=== PATIENT | female | born 1940 | race Asian ===

== ENCOUNTER → 2016-08-07 | Outpatient (CLI) | payer BC ==
[~2016-08-07] MED LIST: CITA10TA8 PO; PRLSR20 PO
[2016-08-07 14:16] LABS: ESTIMATED AVERAGE GLUCOSE 134 mg/dl; HA1C FLAG Normal (Normal)
== END | disposition home or self-care (01) ==
LOC: C.LABBC 10:36
PROVIDERS: ATTEND Internal Medicine Geriatric Medicine
DX: R73.9 Hyperglycemia, unspecified (principal); K90.0 Celiac disease

== ENCOUNTER → 2016-08-09 | Outpatient (CLI) | payer BC ==
--- NOTE | 2016-08-09 16:02 | MAMMOGRAPHY REPORT ---
BILATERAL DIGITAL SCREENING MAMMOGRAM TOMOSYNTHESIS WITH CAD: 08/09/2016 TECHNIQUE: Breast tomosynthesis in addition to standard 2D mammography was performed. Current study was also evaluated with a Computer Aided Detection (CAD) system. COMPARISON: Comparison is made to exams dated: 08/09/2015 mammogram, 07/01/2013 mammogram, 07/26/2014 m ammogram, 06/29/2012 mammogram, 06/13/2011 mammogram, and 06/12/2010 mammogram - [facility]. BREAST COMPOSITION: There are scattered areas of fibroglandular density in both breasts. FINDINGS: No suspicious masses, calcifications, or areas of architectural distortion are noted in e ither breast. There has been no significant interval change compared to prior exams. IMPRESSION: ACR BI-RADS CATEGORY 1: NEGATIVE There is no mammographic evidence of malignancy. A 1 year screening mammogram is recommended. The p atient will receive written notification of the results. Approximately 10% of breast cancers are not detected with mammography. A negative mammographic repor t should not delay biopsy if a clinically suggestive mass is present. Maria Isabel Cerrato M.D. /:08/09/2016 13:56:37 Floor Covering Printer: Lou CARTER(Kymberly)(M), [facility] letter sent: Normal 1/2 BI-RADS Code: ACR BI-RADS Category 1: Negative
== END | disposition home or self-care (01) ==
LOC: C.MAMM 12:37
PROVIDERS: ATTEND Obstetrics & Gynecology
DX: Z12.31 Encounter for screening mammogram for malignant neoplasm of breast (principal)

== ENCOUNTER → 2016-08-22 | Outpatient (CLI) | payer BC ==
--- NOTE | 2016-08-28 12:27 | CODING QUERY MEDICAL NECESSITY ---
SUPPORTING DIAGNOSIS NEEDED A supporting diagnosis is required for the test/procedure performed on this patient in order for us to be reimbursed by the patient's insurance. Please provide a supporting diagnosis for the following test/procedure listed below next to the test name along with your signature. *If there is no additional diagnosis for this patient that would support the following test/procedure please document that below next to the test/procedure. Test(s)/Procedure(s) that require a supporting diagnosis: DOS 08/22 * Bone Density Study DIAGNOSIS: Provider Signature: Date: Thank you Edna Kennedy Health Information Management Once completed, please kindly fax back to [phone] For questions please call [phone]
== END | disposition home or self-care (01) ==
LOC: C.MAMM 14:41
PROVIDERS: ATTEND Internal Medicine Geriatric Medicine
DX: K90.0 Celiac disease (principal)

== ENCOUNTER 2016-10-19 08:38 | Emergency (ER) | payer BC ==
[~2016-10-19] VITALS: Ht 157.5 cm; Wt 56.6 kg
[2016-10-19 08:44] VITALS: TEMP 36.8; Ht 157.5 cm; Wt 56.6 kg
--- NOTE | 2016-10-19 09:03 | EMERGENCY ROOM VISIT NOTE ---
History Report prepared by Artem: Cheryl Mendez Under the Supervision of: Dr. Federico Choudhary M.D. First contact with patient: 08:44 Chief Complaint: HEAD INJURY (MINOR) Stated Complaint: FALL History of Present Illness The patient is a 76 year old female who presents to the Emergency Room with complaints of persistent head pain starting 0400 today. She was getting up to go to the bathroom around 0400 when she fell. Her bed is high and she usually rolls out of bed. Today, she fell and hit the back of her head on the hard wood floor as she was getting out of bed. She reports feeling nauseous at the time, but did not vomit. She was able to get up and go to the bathroom. There is a lump forming on her head. She applied an ice pack to her head which improved her pain. She currently rates her discomfort as a 3/10 in severity. She has some neck stiffness on the right. She denies any arm, leg, back, or abdominal pain. She is not on any blood thinners. Source of History: patient Onset: 399 today Position: head Symptom Intensity: 3/10 Quality: other (pain, injury) Timing: other (persistent) Modifying Factors (Relieving): ice Associated Symptoms: + nausea, + neck pain, No abdominal pain, No back pain , No vomiting Note: Pt denies arm or leg pain. Review of Systems See HPI for pertinent positives & negatives. A total of 10 systems reviewed and were otherwise negative. Past Medical & Surgical Medical Problems: (1) Depression Family History No pertinent family history stated. Social History Marital Status: Housing Status: lives alone Occupation Status: retired Current/Historical Medications Scheduled Citalopram Hydrobromide (Celexa), 10 MG PO DAILY Omeprazole (Prilosec), 1 CAP PO DAILY Allergies Coded Allergies: Aspirin (Verified Allergy, Mild, UPSET STOMACH, 09/29/12) Ibuprofen (Verified Allergy, Mild, UPSET STOMACH, 09/29/12) Physical Exam Vital Signs Date Time Temp Pulse Resp B/P Pulse Ox O2 Delivery O2 Flow Rate FiO2 10/19/16 09:48 76 16 136/64 94 Room Air 10/19/16 08:44 36.8 72 18 161/102 96 Room Air Physical Exam GENERAL: Patient is in no acute distress. HEENT: No facial trauma, mucous membranes moist, left posterior scalp hematoma that is tender to touch, no laceration. NECK: No stridor, no adenopathy, no meningismus, trachea is midline, no posterior cervical spine tenderness or step off. Right trapezius muscle is slightly tender to touch. LUNGS: Clear to auscultation bilaterally, no wheeze, no rhonchi, breath sounds equal. HEART: Without murmurs gallops or rubs, regular rate and rhythm. ABDOMEN: Soft, nontender, bowel sounds positive, no hernias, no peritonitis. EXTREMITIES: No cyanosis or edema, full range of motion of all the joints without pain or difficulty, no signs for acute trauma. NEUROLOGIC: Oriented x 3, no acute motor or sensory deficits, no focal weakness. No cerebellar deficits. SKIN: No rash, no jaundice, no diaphoresis. Medical Decision & Procedures ER Provider Diagnostic Interpretation: Radiology results as stated below per my review and radiologist interpretation: HEAD CT NONCONTRAST CT DOSE: 537.48 mGy.cm HISTORY: Trauma fall, hematoma TECHNIQUE: Multiaxial CT images of the head were performed without the use of intravenous contrast. Comparison: None. Findings: The paranasal sinuses and mastoid air cells are clear. Age-related atrophy and chronic small vessel change. Calcification of the basal ganglia bilaterally. Impression: Age-related change. No acute process. Electronically signed by: Wilner Bueno M.D. 10/19/2016 9:18 AM Dictated Date/Time: 10/19/2016 9:17 AM ED Course 0846: The patient was evaluated in room B2. A complete history and physical exam was performed. 0937: Reevaluated the patient. Discussed results and discharge instructions: she verbalized understanding and agreement. The patient is ready for discharge. Medical Decision Differential diagnoses considered include concussion, skull fracture, hematoma, intracranial bleeding, cervical spine injury, extremity, back, chest, or abdominal trauma. . The patient presents with a posterior left head injury. She was slightly dizzy and little bit nauseated initially but those symptoms have since faded. She is concerned about the possibility of intracranial bleeding or skull fracture. A brain CT was done, there was no acute bleed or mass effect. On exam, I could not find evidence for bony injury to the neck. There is no evidence for extremity, back, chest or abdominal trauma. She was mildly tender along the right trapezius muscle, the muscle is likely strained from the fall. The patient was reassured by her testing, she did not want anything for pain. She is being discharged. Impression Primary Impression: Scalp hematoma Additional Impressions: Closed head injury Fall Scribe Attestation The scribe's documentation has been prepared under my direction and personally reviewed by me in its entirety. I confirm that the note above accurately reflects all work, treatment, procedures, and medical decision making performed by me. Departure Information Dispostion Home / Self-Care Referrals Clark Paz M.D. (PCP) Forms HOME CARE DOCUMENTATION FORM, IMPORTANT VISIT INFORMATION Patient Instructions My [facility] Additional Instructions ice to the area tylenol for pain return if worsening brain CT scan today was ok Problem Qualifiers
--- NOTE | 2016-10-19 09:20 | DIAGNOSTIC IMAGING REPORT ---
HEAD CT NONCONTRAST CT DOSE: 537.48 mGy.cm HISTORY: Trauma fall, hematoma TECHNIQUE: Multiaxial CT images of the head were performed without the use of intravenous contrast. Comparison: None. Findings: The paranasal sinuses and mastoid air cells are clear. Age-related atrophy and chronic small vessel change. Calcification of the basal ganglia bilaterally. Impression: Age-related change. No acute process. Electronically signed by: Wilner Bueno M.D. 10/19/2016 9:18 AM Dictated Date/Time: 10/19/2016 9:17 AM
[2016-10-19] MEDS ORDERED: PRLSR20 PO (09:42)
[2016-10-19] MEDS ORDERED: CITA10TA8 PO (09:42)
[2016-10-19 09:48] VITALS: BP 136/64; PULSE 76; O2SAT 94
[2017-03-12] MEDS ORDERED: HYOS1TAB PO (15:21)
[2017-03-12] MEDS ORDERED: OMEP20TA PO (15:21)
[2017-03-12] MEDS ORDERED: CITA20TA4 PO (15:21)
[2017-03-12] MEDS ORDERED: CHOL100010 PO (15:21)
[2017-03-12] MEDS ORDERED: STRESS TAB PO (15:21)
[2017-03-12] MEDS ORDERED: CALC1TAB9 PO (15:21)
[2017-03-12] MEDS ORDERED: GLUC500T35 PO (15:21)
[2017-03-12] MEDS ORDERED: OMEG10007 PO (15:21)
== END 2016-10-19 09:50 | disposition home or self-care (01) ==
LOC: EDBD 08:38 → C.EDB 08:39
DX: S09.90XA Unspecified injury of head, initial encounter (principal); S00.83XA Contusion of other part of head, initial encounter; W18.09XA Striking against other object with subsequent fall, initial encounter; F32.9 Major depressive disorder, single episode, unspecified; Z79.899 Other long term (current) drug therapy; Z88.6 Allergy status to analgesic agent

== ENCOUNTER → 2017-03-27 | Day surgery (SDC) | payer BC ==
[2017-03-12 15:21] VITALS: Ht 155.6 cm; Wt 54.5 kg
[~2017-03-27] VITALS: Ht 155.6 cm; Wt 54.5 kg
[~2017-03-27] MED LIST changes: +CALC1TAB9 PO; +CHOL100010 PO; -CITA10TA8 PO; +CITA20TA4 PO; +GLUC500T35 PO; +HYOS1TAB PO; +LIDOCAINE HCL 2% 2 ML VIAL (20MG/ML) ONE; +OMEG10007 PO; +OMEP20TA PO; -PRLSR20 PO; +PROPOFOL IV EMULSION 10 MG/ML 20 ML VIAL IV ONE; +STRESS TAB PO
--- NOTE | 2017-03-27 13:41 | Endo History and Physical ---
History & Physical Date of Service: Mar 27, 2017. Chief Complaint: IBS Referring Physician: Clark Paz History of Present Illness 76 yo female who presents for colonoscopy secondary to IBS. Past Surgical History Hx Cardiac Surgery: No Hx Internal Defibrillator: No Hx Pacemaker: No Hx Abdominal Surgery: Yes (TUBAL LIGATION) Hx of Implantable Prosthesis: No Hx Post-Op Nausea and Vomiting: No Hx Cancer Surgery: No Hx Thoracic Surgery: No Hx Orthopedic: No Hx Urinary Tract Surgery: No Family History Colon CA Social History Smoking Status: Never Smoker Hx Substance Use: No Hx Alcohol Use: No Allergies Coded Allergies: Aspirin (Verified Allergy, Mild, UPSET STOMACH, 03/12/17) Ibuprofen (Verified Allergy, Mild, UPSET STOMACH, 03/12/17) Current Medications Reported Home Medications Medications Dose Route/Sig Max Daily Dose Days Date Category [place]-3 (Fish Oil) 1 Ea Cap 1 Cap PO DAILY 03/12/17 Reported Cosamin Ds (Glucosamine-Chondroitin) 1 Tab Tab 1 Tab PO DAILY 03/12/17 Reported Vitamin D (Cholecalciferol) 1,000 Unit Tab 2 Tabs PO DAILY 03/12/17 Reported Citracal + D3 Maximum (Calcium Citrate-Vitamin D) 1 Tab Tab 1 Tab PO DAILY 03/12/17 Reported [Stress Tab] 1 Tab PO DAILY 03/12/17 Reported Levsin (Hyoscyamine Sulfate) 0.125 Mg Tab 0.125 Mg PO DAILY PRN 03/12/17 Reported Omeprazole 20 Mg Tab 1 Tab PO DAILY PRN 03/12/17 Reported Citalopram Hydrobromide 20 Mg Tab 0.5 Tab PO QAM 03/12/17 Reported Vital Signs Weight (Kilograms): 54.55 Height (Feet): 5 Height (Inches): 1.25 Date Time Temp Pulse Resp B/P (MAP) Pulse Ox O2 Delivery O2 Flow Rate FiO2 03/27/17 13:31 36.8 79 20 179/74 (109) 96 Room Air Physical Exam General Appearance: WD/WN, no apparent distress Respiratory/Chest: Auscultation: breath sounds normal Cardiovascular: Heart Auscultation: RRR Abdomen: Bowel Sounds: normal Inspection & Palpation: soft, non-distended, no tenderness, guarding & rebound Assessment and Plan Assessment: 76 yo female who presents for colonoscopy secondary to IBS. Plan: Proceed with colonoscopy.
--- NOTE | 2017-03-27 14:28 | GI REPORT ---
Procedure Date: 03/27/2017 1:46 PM Procedure: Colonoscopy Indications: Change in bowel habits Medicines: Monitored Anesthesia Care Complications: No immediate complications. Estimated Blood Loss: Estimated blood loss: none. Procedure: Pre-Anesthesia Assessment: - Prior to the procedure, a History and Physical was performed, and patient medications and allergies were reviewed. The patient's tolerance of previous anesthesia was also reviewed. The risks and benefits of the procedure and the sedation options and risks were discussed with the patient. All questions were answered, and informed consent was obtained. Prior Anticoagulants: The patient has taken no previous anticoagulant or antiplatelet agents. ASA Grade Assessment: II - A patient with mild systemic disease. After reviewing the risks and benefits, the patient was deemed in satisfactory condition to undergo the procedure. After I obtained informed consent, the scope was passed under direct vision. Throughout the procedure, the patient's blood pressure, pulse, and oxygen saturations were monitored continuously. The Scope was introduced through the anus and advanced to the terminal ileum. The colonoscopy was performed without difficulty. The patient tolerated the procedure well. The quality of the bowel preparation was good. The terminal ileum, ileocecal valve, appendiceal orifice, and rectum were photographed. Findings: A 4 mm polyp was found in the cecum. The polyp was sessile. The polyp was removed with a cold snare. Resection and retrieval were complete. Non-bleeding internal hemorrhoids were found during retroflexion. The hemorrhoids were small. Impression: - One 4 mm polyp in the cecum, removed with a cold snare. Resected and retrieved. - Non-bleeding internal hemorrhoids. Recommendation: - Resume previous diet. - Continue present medications. - Repeat colonoscopy for surveillance based on pathology results. - Return to primary care physician as previously scheduled. Nicho Gregg DO 03/27/2017 2:27:58 PM This report has been signed electronically. Note Initiated On: 03/27/2017 1:46 PM I attest to the content of the Intraoperative Record and orders documented therein, exceptions below
--- NOTE | 2017-03-27 14:28 | Discharge Instructions ---
Endoscopy Patient Instructions Date / Procedure(s) Performed Mar 27, 2017. Colonoscopy Allergy Information Coded Allergies: Aspirin (Verified Allergy, Mild, UPSET STOMACH, 03/12/17) Ibuprofen (Verified Allergy, Mild, UPSET STOMACH, 03/12/17) Discharge Date / Findings Mar 27, 2017. Colon polyp Internal hemorrhoids Medication Instructions OK to resume all medications today as prescribed Reported Home Medications Medications Dose Route/Sig Max Daily Dose Days Date Category [place]-3 (Fish Oil) 1 Ea Cap 1 Cap PO DAILY 03/12/17 Reported Cosamin Ds (Glucosamine-Chondroitin) 1 Tab Tab 1 Tab PO DAILY 03/12/17 Reported Vitamin D (Cholecalciferol) 1,000 Unit Tab 2 Tabs PO DAILY 03/12/17 Reported Citracal + D3 Maximum (Calcium Citrate-Vitamin D) 1 Tab Tab 1 Tab PO DAILY 03/12/17 Reported [Stress Tab] 1 Tab PO DAILY 03/12/17 Reported Levsin (Hyoscyamine Sulfate) 0.125 Mg Tab 0.125 Mg PO DAILY PRN 03/12/17 Reported Omeprazole 20 Mg Tab 1 Tab PO DAILY PRN 03/12/17 Reported Citalopram Hydrobromide 20 Mg Tab 0.5 Tab PO QAM 03/12/17 Reported Provider Instructions Activity Restrictions - No exercising or heavy lifting for 24 hours. - Do not drink alcohol the day of the procedure. - Do not drive a car or operate machinery until the day after the procedure. - Do not make any important decisions or sign important papers in 24 hours after the procedure. Following Day: - Return to full activity which may include returning to work/school. Diet Start your diet with liquids and light foods (jello, soup, juice, toast). Then eat your usual diet if not nauseated. Treatment For Common After Affects For mild abdominal pain, bloating, or excessive gas: - Rest - Eat lightly - Lie on right side Follow-Up Information Follow-up with Clark Paz as scheduled Anesthesia Information What You Should Know You have had a procedure that required some medicine to reduce anxiety and discomfort. This treatment is called moderate sedation. After receiving the treatment, you may be sleepy, but you will be able to breathe on your own. The effects of the treatment may last for several hours. Follow these instructions along with Activity/Diet recommendations noted above: * Do NOT do anything where dizziness or clumsiness would be dangerous. * Rest quietly at home today, then you can be up and about tomorrow. * Have a responsible person stay with you the rest of today. * You may have had an I.V. today. If so, you may take the dressing off later today. Recommendations Call your doctor if: * Trouble breathing * Continuous vomiting for more than 24 hours * Temperature above 101 degrees * Severe abdominal pain or bloating * Pain not relieved by pain medicine ordered * There is increased drainage or redness from any incision * A large amount of rectal bleeding greater than 2-3 tablespoons. (If you had a polyp/s removed or have hemorrhoids, a small amount of blood - from the rectum is to be expected.) * You have any unanswered questions or concerns. IN THE EVENT OF A SERIOUS EMERGENCY, GO TO THE NEAREST EMERGENCY ROOM Your discharge instructions were prepared by provider Nicho Gregg. Patient Instructions Signature Page Summer Garner Patient (or Guardian) Signature/Date: I have read and understand the instructions given to me by my caregivers. Caregiver/RN/Doctor Signature/Date: The above-named patient and/or guardian has received patient instructions on this date. + Original Patient Signature Page (only) stays with chart. Please make copy for patient.
[2017-03-27 14:57] VITALS: BP 152/59; PULSE 76; O2SAT 96
--- NOTE | 2017-03-27 14:59 | Anesthesiology Progress Note ---
Anesthesia Post Op Note Date & Time Mar 27, 2017 at 14:59 Vital Signs Vital Signs Past 12 Hours Date Time Temp Pulse Resp B/P (MAP) Pulse Ox O2 Delivery O2 Flow Rate FiO2 03/27/17 14:42 68 18 135/67 (89) 98 Room Air 03/27/17 14:27 66 16 98/46 (63) 94 Room Air 03/27/17 13:31 36.8 79 20 179/74 (109) 96 Room Air Notes Mental Status: alert / awake / arousable, participated in evaluation Pt Amnestic to Procedure: Yes Nausea / Vomiting: adequately controlled Pain: adequately controlled Airway Patency, RR, SpO2: stable & adequate BP & HR: stable & adequate Hydration State: stable & adequate Anesthetic Complications: no major complications apparent
== END | disposition home or self-care (01) ==
LOC: C.GI 12:54
PROVIDERS: ATTEND Internal Medicine
DX: R19.4 Change in bowel habit (principal); K58.9 Irritable bowel syndrome, unspecified; D12.0 Benign neoplasm of cecum; K64.8 Other hemorrhoids; Z98.51 Tubal ligation status; Z90.89 Acquired absence of other organs; Z98.41 Cataract extraction status, right eye; Z98.42 Cataract extraction status, left eye; Z68.22 Body mass index [BMI] 22.0-22.9, adult; Z80.0 Family history of malignant neoplasm of digestive organs

== ENCOUNTER → 2017-05-21 | Outpatient (CLI) | payer BC ==
[~2017-05-21] MED LIST changes: -LIDOCAINE HCL 2% 2 ML VIAL (20MG/ML) ONE; +OPTIRAY 320 IV PRN; -PROPOFOL IV EMULSION 10 MG/ML 20 ML VIAL IV ONE
--- NOTE | 2017-05-21 09:29 | DIAGNOSTIC IMAGING REPORT ---
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 TECHNIQUE: Multiaxial CT images of the abdomen and pelvis were performed following the use of intravenous and oral contrast. A dose lowering technique was utilized adhering to the principles of ALARA. COMPARISON STUDY: Abdomen and pelvis CT 10/15/2012. FINDINGS: Mild dependent changes seen at the lung bases. No pneumoperitoneum. No pneumatosis. Punctate calcification within the right hepatic dome. No hepatic or splenic masses. The adrenal glands, spleen, and kidneys are unremarkable. No change in the severely distended complex appearing gallbladder. This may represent a duplicated gallbladder or noncommunicating segment of the gallbladder that is walled off. There is again noted a focal area of cystic change and soft tissue thickening at the gallbladder fundus consistent with adenomyomatosis. Common bile duct remains normal in caliber for age measuring up to 7 mm. The pancreas remains within normal limits. No retroperitoneal lymphadenopathy. The bladder, uterus, and adnexa are unremarkable. No bowel wall thickening or obstruction. Normal appendix. IMPRESSION: 1. Overall, no significant change compared the prior study. 2. No bowel wall thickening or obstruction. 3. No change in the complex/distended gallbladder is described above. This is better appreciated on the 2012 MRCP. Electronically signed by: Steven Lu M.D. 05/21/2017 9:28 AM Dictated Date/Time: 05/21/2017 9:13 AM
== END | disposition home or self-care (01) ==
LOC: C.CTS 08:25
PROVIDERS: ATTEND Internal Medicine Geriatric Medicine
DX: K83.5 Biliary cyst (principal); K90.0 Celiac disease; R10.13 Epigastric pain

== ENCOUNTER → 2017-06-26 | Outpatient (CLI) | payer BC ==
[~2017-06-26] MED LIST changes: -OPTIRAY 320 IV PRN
[2017-06-26 12:32] LABS: ALBUMIN 3.8 gm/dl (3.4-5.0); BLOOD UREA NITROGEN 17 mg/dl (7-18); CALCIUM 9.1 mg/dl (8.5-10.1); CARBON DIOXIDE 25 mmol/L (21-32); CREATININE 0.53 mg/dl (0.60-1.20); GLUCOSE 94 mg/dl (70-99); SODIUM 135 mmol/L (136-145)
[2017-06-26 12:43] LABS: ALKALINE PHOSPHATASE 70 U/L (45-117); ALT/SGPT 19 U/L (12-78); AST/SGOT 16 U/L (15-37); TOTAL PROTEIN 7.8 gm/dl (6.4-8.2)
[2017-06-26 12:54] LABS: HEMOGLOBIN A1C 6.2 % (4.5-5.6)
== END | disposition home or self-care (01) ==
LOC: C.LAB1850 10:49
PROVIDERS: ATTEND Internal Medicine Geriatric Medicine
DX: E55.9 Vitamin D deficiency, unspecified (principal); R73.9 Hyperglycemia, unspecified; M19.90 Unspecified osteoarthritis, unspecified site; K90.0 Celiac disease

== ENCOUNTER → 2017-08-11 | Outpatient (CLI) | payer BC ==
--- NOTE | 2017-08-12 15:13 | MAMMOGRAPHY REPORT ---
BILATERAL DIGITAL SCREENING MAMMOGRAM TOMOSYNTHESIS WITH CAD: 08/11/2017 CLINICAL HISTORY: Routine screening. TECHNIQUE: Breast tomosynthesis in addition to standard 2D mammography was performed. Current study was also evaluated with a Computer Aided Detection (CAD) system. COMPARISON: Comparison is made to exams dated: 08/09/2016 mammogram, 08/09/2015 mammogram, 07/26/2014 ma mmogram, 07/01/2013 mammogram, 06/29/2012 mammogram, and 06/13/2011 mammogram - [facility] nter. BREAST COMPOSITION: There are scattered areas of fibroglandular density in both breasts. FINDINGS: There is a possible area of architectural distortion in the lateral, posterior left breast only seen on CC tomosynthesis slice 27-28/55, for which additional spot compression tomosynthesis vi ews and possible ultrasound are recommended. There are scattered stable benign-appearing calcifications in both breasts. No other suspicious mass, architectural distortion or cluster of microcalcifications is seen. IMPRESSION: ACR BI-RADS CATEGORY 0: INCOMPLETE EVALUATION: NEED ADDITIONAL IMAGING EVALUATION The possible area of architectural distortion in the lateral, posterior left breast needs additional evaluation. The patient will be called to schedule an appointment. Approximately 10% of breast cancers are not detected with mammography. A negative mammographic report should not delay biopsy if a clinically suggestive mass is present. Virgen Pickering M.D. ay/:08/11/2017 15:57:40 Plaster Mechanic: Kacey CARTER(Kymberly)(M), [facility] letter sent: Addl Imaging 0 BI-RADS Code: ACR BI-RADS Category 0: Incomplete Evaluation: Need Additional Imaging Evaluation
== END | disposition home or self-care (01) ==
LOC: C.MAMM 13:58
PROVIDERS: ATTEND Obstetrics & Gynecology
DX: Z12.31 Encounter for screening mammogram for malignant neoplasm of breast (principal); N64.89 Other specified disorders of breast

== ENCOUNTER → 2017-08-22 | Outpatient (CLI) | payer BC ==
--- NOTE | 2017-08-25 12:43 | MAMMOGRAPHY REPORT ---
UNILATERAL LEFT DIGITAL DIAGNOSTIC MAMMOGRAM TOMOSYNTHESIS: 08/22/2017 CLINICAL HISTORY: Callback from screening mammogram for possible left breast architectural distortion . TECHNIQUE: Breast tomosynthesis in addition to standard 2D mammography was performed. Spot compress ion left CC 2D and tomosynthesis images were obtained. COMPARISON: Comparison is made to exams dated: 08/11/2017 mammogram, 08/09/2016 mammogram, 08/09/2015 ma mmogram, 07/26/2014 mammogram, 07/01/2013 mammogram, and 06/29/2012 mammogram - [facility] nter. BREAST COMPOSITION: There are scattered areas of fibroglandular density in the left breast. FINDINGS: The previously described area of questionable architectural distortion seen within the left lateral breast on the cc view only does not persist on the additional spot compression views. Jaycee l fibroglandular tissue is seen in this region, without evidence of a mass, architectural distortion, or other suspicious abnormality. Findings are benign and compatible with normal fibroglandular tiss ue. IMPRESSION: ACR BI-RADS CATEGORY 2: BENIGN The questionable architectural distortion within the left breast does not persist on the additional v iews. Findings are benign and compatible with normal fibroglandular tissue. There is no mammographi c evidence of malignancy. A 1 year screening mammogram is recommended. The patient has been verbally notified of the results. Approximately 10% of breast cancers are not detected with mammography. A negative mammographic report should not delay biopsy if a clinically suggestive mass is present. Maria Isabel Cerrato M.D. ah/:08/22/2017 10:48:23 Earthmoving Labourer: Kacey CARTER(Kymberly)(M), [facility] letter sent: Normal 1/2 BI-RADS Code: ACR BI-RADS Category 2: Benign
== END | disposition home or self-care (01) ==
LOC: C.MAMM 10:15
PROVIDERS: ATTEND Obstetrics & Gynecology
DX: N64.89 Other specified disorders of breast (principal)